=== PATIENT | female | born 1940 | race Caucasian/White ===

== ENCOUNTER 2017-06-18 17:59 | Observation (INO) | payer OTHER ==
[~2017-06-18] VITALS: Ht 157.5 cm; Wt 54.4 kg
--- NOTE | ~2017-06-18 | OR ---
Unit #: [id number] #: [id number] Patient: MIRA SCHWARZ [id number] [place], [place] [address] [id number] I MR#: [id number] NAME: MIRA SCHWARZ ROOM: 242 Date of Procedure: 06/19/2017 Admission Date: 06/18/2017 Surgeon: Lucas Cardoza Jr., M.D. : 1940 Attending Physician: Lucas Cardoza Jr., M.D. Primary Care Physician: Magdalena Curiel M.D. OPERATIVE REPORT INDICATIONS FOR PROCEDURE The patient is a 76-year-old white female, who a day and a half ago was eating steak and felt that this hung up in her esophagus. Since then, she has had problems swallowing and was felt she probably had a foreign body in the esophagus with possible esophageal stenosis. She has had no previous history of this. She is brought to the endoscopy suite at this time for upper endoscopy to rule out foreign body and removal if found and possible esophageal dilatation. The patient understands the procedure including the risks, including that of bleeding and perforation, and consents. PREOPERATIVE DIAGNOSIS Possible esophageal stenosis with foreign body in the esophagus. POSTOPERATIVE DIAGNOSES No evidence of foreign body, but the patient did have a Schatzki ring with mild esophageal stenosis and reflux esophagitis. She also was noted to have some mild gastritis. ANESTHESIA MAC anesthesia. PROCEDURE PERFORMED Flexible fiberoptic esophagogastroduodenoscopy with balloon dilatation of the distal esophagus using an 18 to 20 mm balloon dilator. She was dilated up to 20 mm slowly. DESCRIPTION OF PROCEDURE The patient was positioned in Harp position with left side down. After being given MAC anesthesia, the Olympus XQ scope was passed in the proximal esophagus. The entire esophagus was examined. Proximal two-thirds appeared normal. In the area of the GE junction, there is mild stenosis of the distal esophagus with a Schatzki ring. The scope was advanced through this area without significant resistance and the cardia, fundic, antral region of the stomach, and retroflexed back up to the area of the cardia. There was no obvious hiatal hernia present. The stomach distended well without evidence of rigidity. There were some mild diffuse patchy areas of gastritis, which was atrophic, but no evidence of any gastric ulcer disease. The scope was advanced down the prepyloric region through the pylorus and the duodenal bulb and down to the second portion of the duodenum. The entire duodenal portion examination was within normal limits. The scope was brought back up the area of the fundus and Unit #: [id number] #: [id number] Patient: MIRA SCHWARZ an 18 to 20 mm balloon dilator was placed, brought up in the distal esophagus, and slowly the patient was dilated from 18 to 19 to 20 mm with no evidence of any esophageal rupture or tear, and only small amount of bleeding from stretching the Schatzki ring. The scope was then slowly removed. The patient tolerated the procedure well and discharged in satisfactory condition. Dictated by... Lucas Cardoza Jr., M.D. JMB/issa TD: 06/19/2017 16:19 JOB #: [id number] OPERATIVE REPORT Page 1 of 1 X Lucas Cardoza MD X PROCEDURE OPERATIVE NOTE
--- NOTE | ~2017-06-18 | HP ---
Unit #: [id number] #: [id number] Patient: MIRA SCHWARZ [id number] [facility]. [place], [place] [address] [id number] I MR#: [id number] NAME: MIRA SCHWARZ. ROOM: 242 Age: 76 Sex: F Admission Date: 06/18/2017 : 1940 Attending Physician: Lucas Cardoza Jr., M.D. Primary Care Physician: Magdalena Curiel M.D. HISTORY AND PHYSICAL CHIEF COMPLAINT Dysphagia. HISTORY OF PRESENT ILLNESS The patient is a 76-year-old white female who was eating steak yesterday and felt that a piece of this may have hung up in her esophagus. Since then she has had problems handling her own secretions and has been spitting out saliva at times. She has had no past history of this. PAST MEDICAL HISTORY Serious illnesses none. PAST SURGICAL HISTORY Hysterectomy in the past. SOCIAL HISTORY The patient is single. She smokes approximately a half pack of cigarettes per day. She is a nondrinker. IMMUNIZATIONS Up to date. FAMILY HISTORY Noncontributory. ALLERGIES No known drug allergies. TRANSFUSIONS None in the past. CURRENT MEDICATIONS She takes occasional Tylenol p.r.n. REVIEW OF SYSTEMS Ten systems were reviewed and performed, which is unremarkable except for that noted in present illness. PHYSICAL EXAMINATION GENERAL: The patient is a well-developed, thin, 76-year-old white female in no acute distress. VITALS: The patient is afebrile. Blood pressure in the emergency room was 178/87 and that is now down to more normal numbers. HEENT: Unremarkable. Unit #: [id number] #: [id number] Patient: MIRA SCHWARZ NECK: Supple. LUNGS: Clear bilaterally. CHEST: Equal bilateral expansion with bilateral equal breath sounds. HEART: Regular rhythm without murmurs or gallops. There is no evidence of cardiomegaly clinically. ABDOMEN: Soft, nontender and benign without masses or organomegaly. There is no gross abdominal distension. No guarding or rebound. Active bowel sounds present. No evidence of ascites or hernias. EXTREMITIES: Full range of motion without limitation. There is no evidence of peripheral edema. BACK: No CVA tenderness. NEUROLOGIC: Grossly intact. DIAGNOSTIC STUDIES LABORATORY: Basically within normal limits. ASSESSMENT The patient has a foreign body in the esophagus with possible esophageal stenosis secondary to gastroesophageal reflux disease. PLAN We will go ahead with an EGD and removal of foreign body and possible dilatation. The patient understands the procedure including the risks including that of esophageal perforation and bleeding and consents. Dictated by Lucas Cardoza Jr., M.D. JMB/jacky TD: 06/19/2017 06:37 JOB #: [id number] HISTORY AND PHYSICAL Page 1 of 1 X Lucas Cardoza MD X HISTORY AND PHYSICAL
--- NOTE | ~2017-06-18 | CR72 ---
[facility] A Service of [facility] RADIOLOGY TEXT RESULTS PATIENT: MIRA SCHWARZ LOCATION: C2A 242- : 40 UNIT #: [id number] AGE: [address]: Lucas Cardoza MD SEX: F ORDER DR: [id number] [facility] [address] [facility]. [place], [place] [address] [id number] I MR#: [id number] Acc #: [id number] NAME: MIRA SCHWARZ. : 1940 SEX: F STUDY DATE/TIME: 06/18/2017 18:49 UNIT: [facility] ROOM: [facility] STUDY DESCRIPTION: CR Chest Single View Portable Attending Physician: Lucas Cardoza Jr., M.D. Ordering Physician: Milady Rubio M.D. Primary Care Physician: Magdalena Curiel M.D. MEDICAL IMAGING REPORT This report is preliminary unless electronic signature is present EXAM Portable chest x-ray 06/18/2017. HISTORY The history is esophageal foreign body. Piece of steak caught in throat. Esophageal foreign body. Mild congestion 2 hours duration. TECHNIQUE AP radiograph of the chest is presented. COMPARISON No comparison. FINDINGS No acute bony abnormality. Borderline cardiac enlargement. Mediastinal contours normal. The lungs are hyperinflated, suggesting underlying chronic airway disease. Correlate clinically. There is no evidence of acute pulmonary disease, pleural effusion or pneumothorax. There is an area of localized scarring or atelectasis with some probable small associated calcified granulomata in the right upper lung zone. There is no suspicious nodule. No radiodense foreign body seen along the anticipated course of the esophagus. There is no indication of esophageal dilatation. Visualized upper abdomen unremarkable. Dictated by... Aleks Serrano M.D. THIS IS AN ELECTRONICALLY VERIFIED REPORT Aleks Serrano M.D. at 06/20/2017 2:44 PM ANA PAULA/jacky TD: 06/19/2017 13:03 JOB #: [id number] [facility] A Service of [facility] RADIOLOGY TEXT RESULTS PATIENT: MIRA SCHWARZ LOCATION: [facility] 242-01 : 40 UNIT #: [id number] AGE: [address]: Lucas Cardoza MD SEX: F ORDER DR: MEDICAL IMAGING REPORT Page 1 of 1 COPY
[2017-06-18 19:04] LABS: BASOPHIL# 0.1 X10e3 (0-0.3); BASOPHIL% 0.8 % (0-2.5); EOSINOPHIL# 0.1 X10e3 (0-0.7); EOSINOPHIL% 1.5 % (0.0-7.0); HEMATOCRIT 42.3 % (35.0-45.0); HEMOGLOBIN 14.7 gm/dL (12.0-16.0); LYMPHOCYTE# 1.9 X10e3 (1.0-3.5); MEAN CELL VOLUME 90.3 FL (83-96); MEAN CORPUSCULAR HEMOGLOBIN 31.3 PG (28-34); MEAN CORPUSCULAR HGB CONC 34.7 g/dL (30-36); MEAN PLATELET VOLUME 7.5 FL (6.5-11.5); MONOCYTE# 0.6 X10e3 (0-1.0); MONOCYTE% 7.3 % (3.0-12.0); NEUTROPHIL# 4.9 X10e3 (1.5-7.1); NEUTROPHIL% 65.4 % (40-75); PLATELET COUNT 335 X10e3 (140-420); RED BLOOD COUNT 4.68 X10e (3.90-5.30); RED CELL DISTRIBUTION WIDTH 14.1 % (11.0-15.5); WHITE BLOOD COUNT 7.6 X10e3 (4.0-10.5)
[2017-06-18 19:05] LABS: DIFF IND NO
[2017-06-18 19:20] LABS: PARTIAL THROMBOPLASTIN TIME 28.5 SECONDS (23.5-31.3)
[2017-06-18 19:27] LABS: BUN/CREATININE RATIO 11.11; CALCIUM SERUM 9.4 mg/dL (8.4-10.2); CREATININE SERUM 0.9 mg/dL (0.6-1.4); GLOM FILT RATE Estimated 62.2 mL/min (>60); POTASSIUM 3.4 mmol/L (3.5-5.1)
[2017-06-18] MEDS ORDERED: NO MEDICATIONS (20:06)
[2017-06-19] MEDS ORDERED: CARAFATE1 GM PO (10:46)
== END 2017-06-19 13:10 | disposition home or self-care (01) | DRG 392 ==
LOC: CED 17:59 → CEDOF 20:45 → CED 21:16 → CEDOF 21:40 → C2A 21:40
PROVIDERS: Student in an Organized Health Care Education/Training Program
DX: K22.2 Esophageal obstruction (principal); K21.0 Gastro-esophageal reflux disease with esophagitis; K29.40 Chronic atrophic gastritis without bleeding; M19.90 Unspecified osteoarthritis, unspecified site; F17.210 Nicotine dependence, cigarettes, uncomplicated; Z90.710 Acquired absence of both cervix and uterus
CPT/HCPCS: 36415; 71010; 80048; 85025; 85610; 85730; 96374; 96375; 96376; 99284; G0378; J1610; J2765